=== PATIENT | female | born 1985 | race Caucasian/White ===

== ENCOUNTER 2018-05-28 13:15 | Inpatient (IN) | payer OTHER ==
[~2018-05-28] VITALS: Ht 154.9 cm; Wt 52.2 kg
[~2018-05-28 13:15] MED LIST: CARDIZEM CD240 MG PO
== END 2018-06-07 12:45 | disposition home or self-care (01) | DRG 743 ==
LOC: O/R 06-04 06:19 → OB/GYN 06-04 06:19 → MEDI 06-05 20:12 → SURH 06-05 20:12
PROVIDERS: Obstetrics & Gynecology
PROC: 30233N1 Transfusion of Nonautologous Red Blood Cells into Peripheral Vein, Percutaneous Approach (ICD-10-PCS; 2018-06-04)
PROC: 3E0F7GC Introduction of Other Therapeutic Substance into Respiratory Tract, Via Natural or Artificial Opening (ICD-10-PCS; 2018-06-04)
PROC: 0UB90ZZ Excision of Uterus, Open Approach (ICD-10-PCS; principal; 2018-06-04 09:30)
PROC: 4A12X4Z Monitoring of Cardiac Electrical Activity, External Approach (ICD-10-PCS; 2018-06-05)
DX: D25.1 Intramural leiomyoma of uterus (principal); D25.2 Subserosal leiomyoma of uterus; I11.9 Hypertensive heart disease without heart failure; J45.20 Mild intermittent asthma, uncomplicated; D50.0 Iron deficiency anemia secondary to blood loss (chronic); R00.0 Tachycardia, unspecified